=== PATIENT | female | born 1955 | race Two or more races ===

== ENCOUNTER 2021-07-30 15:17 | Outpatient (CLI) | payer OTHER | END 2021-07-30 15:21 | disposition home or self-care (01) | LOC: RAD 15:17 | PROVIDERS: ATTEND Neurological Surgery | DX: M62.838 Other muscle spasm (principal); G89.4 Chronic pain syndrome; M47.22 Other spondylosis with radiculopathy, cervical region; M43.12 Spondylolisthesis, cervical region; M50.121 Cervical disc disorder at C4-C5 level with radiculopathy; M99.71 Connective tissue and disc stenosis of intervertebral foramina of cervical region; M43.8X9 Other specified deforming dorsopathies, site unspecified; M50.323 Other cervical disc degeneration at C6-C7 level; S12.49 Other fracture of fifth cervical vertebra ==

== ENCOUNTER 2021-09-16 15:37 | Outpatient (CLI) | payer OTHER | END 2021-09-16 15:44 | disposition home or self-care (01) | LOC: RAD 15:37 | PROVIDERS: ATTEND Neurological Surgery | DX: M54.2 Cervicalgia (principal); M62.838 Other muscle spasm; G89.4 Chronic pain syndrome; S12.49 Other fracture of fifth cervical vertebra; M43.12 Spondylolisthesis, cervical region; M99.71 Connective tissue and disc stenosis of intervertebral foramina of cervical region; M43.8X9 Other specified deforming dorsopathies, site unspecified ==